=== PATIENT | female | born 1980 | race Caucasian/White ===

== ENCOUNTER 2022-02-13 14:35 | Emergency (ER) | payer BC, OTHER ==
[2022-02-13 14:50] VITALS: BP 128/79; PULSE 96; RESP 16; TEMP 98.6; BMI 18.6
[2022-02-13] MEDS ORDERED: DIPHTH,PERTUSS(ACELL),TET 0.5 ML DISP.SYRIN IM ONE ×2 (14:55→15:04)
[2022-02-13] MEDS ORDERED: AMOX TR/POT CLAV 875MG/125MG TABLETS (FP) PO ONE (15:53)
[2022-02-13] MEDS ORDERED: AMOX TR/POT CLAV 875MG/125MG TABLETS (FP) ONE (16:09)
== END 2022-02-13 16:15 | disposition home or self-care (01) ==
LOC: FER 14:35
PROC: 0HQLXZZ Repair Left Lower Leg Skin, External Approach (ICD-10-PCS; principal; 2022-02-13)
PROC: 3E0234Z Introduction of Serum, Toxoid and Vaccine into Muscle, Percutaneous Approach (ICD-10-PCS; 2022-02-13)
DX: S81.842A Puncture wound with foreign body, left lower leg, initial encounter (principal); W54.0XXA Bitten by dog, initial encounter
CPT/HCPCS: 73560-TC-LT-FY; 90471; 90715; 99284-25

== ENCOUNTER 2022-02-20 12:47 | Emergency (ER) | payer OTHER ==
[2022-02-20 12:55] VITALS: BP 122/81; PULSE 82; RESP 16; TEMP 98.7; BMI 18.6
== END 2022-02-20 13:15 | disposition home or self-care (01) ==
LOC: FER 12:47
DX: S81.852A Open bite, left lower leg, initial encounter (principal); W54.0XXA Bitten by dog, initial encounter; Z48.02 Encounter for removal of sutures
CPT/HCPCS: 99281-25